=== PATIENT | male | born 1950 | race Caucasian/White ===

== ENCOUNTER 2020-08-04 06:45 | Day surgery (SDC) | payer MEDICARE ==
[~2020-08-04] VITALS: Ht 182.9 cm; Wt 104.2 kg
[~2020-08-04 06:45] MED LIST: ASPI81CH PO; Amlodipine Besyl5 MG PO; Aspir 8181 MG PO; Diovan Hct 1601 EAC1; HUMIRA40 MG/0.2 INJ; HYDCHL12.5 PO; VALSARTAN-HCTZ1 EAC4 PO; VALSARTAN-HCTZ1 EAC7 PO
--- NOTE | 2020-08-04 07:08 | NUR ---
08/04/20 0708 Melonie Hopson 0702 TETRACAINE WAS PLACED IN RIGHT EYE PER DR ORDERS. 0708 PLEGIT WAS PLACED IN RIGHT EYE PER DR ORDERS.
[2020-08-04] MEDS ORDERED: COSENTYX S150 MG/1 M (07:12)
== END 2020-08-04 08:40 | disposition home or self-care (01) ==
LOC: ORSCSDS 06:45
PROVIDERS: Ophthalmology
PROC: 08RJ3JZ Replacement of Right Lens with Synthetic Substitute, Percutaneous Approach (ICD-10-PCS; principal; 2020-08-04 08:00)
DX: H25.11 Age-related nuclear cataract, right eye (principal); I10 Essential (primary) hypertension; Z79.899 Other long term (current) drug therapy
CPT/HCPCS: A9270; J2001; J2250; J3010; J3301; J7040; V2632

== ENCOUNTER 2020-10-18 14:32 | Day surgery (SDC) | payer MEDICARE ==
[~2020-10-18] VITALS: Ht 182.9 cm; Wt 100.4 kg
[~2020-10-18 14:32] MED LIST changes: +COSENTYX S150 MG/1 M
== END 2020-10-18 17:37 | disposition home or self-care (01) ==
LOC: ORSCSDS 14:32
PROVIDERS: Internal Medicine Gastroenterology
PROC: 0DBH8ZX Excision of Cecum, Via Natural or Artificial Opening Endoscopic, Diagnostic (ICD-10-PCS; principal; 2020-10-18 16:00)
PROC: 0DBN8ZX Excision of Sigmoid Colon, Via Natural or Artificial Opening Endoscopic, Diagnostic (ICD-10-PCS; principal; 2020-10-18 16:00)
PROC: 0DBM8ZX Excision of Descending Colon, Via Natural or Artificial Opening Endoscopic, Diagnostic (ICD-10-PCS; principal; 2020-10-18 16:00)
DX: R19.4 Change in bowel habit (principal); D12.0 Benign neoplasm of cecum; K52.832 Lymphocytic colitis; K57.30 Diverticulosis of large intestine without perforation or abscess without bleeding; K64.8 Other hemorrhoids; K62.5 Hemorrhage of anus and rectum
CPT/HCPCS: 88305; J7120

== ENCOUNTER 2022-10-16 02:32 | Day surgery (SDC) | payer MEDICARE, OTHER ==
[~2022-10-16] VITALS: Wt 102.9 kg
[2022-10-16 09:08] VITALS: BP 151/85
[2022-10-16 09:56] VITALS: BP 133/86
[2022-10-16 10:13] VITALS: BP 142/85
[2022-10-16 10:26] VITALS: BP 137/89
[2022-10-16 10:41] VITALS: BP 123/86
[2022-10-16] MEDS ORDERED: LOSARTAN-HCTZ1 EAC6 PO (10:54)
[2022-10-16] MEDS ORDERED: Voltaren100 GM TOP (10:54)
[2022-10-16 10:56] VITALS: BP 131/85
== END 2022-10-16 11:30 | disposition home or self-care (01) ==
LOC: ATC 02:32
DX: M45.0 Ankylosing spondylitis of multiple sites in spine (principal); M19.011 Primary osteoarthritis, right shoulder; M76.62 Achilles tendinitis, left leg; Z79.899 Other long term (current) drug therapy
CPT/HCPCS: 96375; 96413; 96415; A9270; J2920; J7050; Q5103

== ENCOUNTER 2022-10-31 01:38 | Day surgery (SDC) | payer MEDICARE, OTHER ==
[~2022-10-31 01:38] MED LIST changes: +LOSARTAN-HCTZ1 EAC6 PO; +Voltaren100 GM TOP
[2022-10-31 09:17] VITALS: BP 130/79
[2022-10-31 10:05] LABS: BASOPHILS ABSOLUTE AUTO 0.08 K/mm3 (0.00-0.23); BASOPHILS PERCENT AUTO 1 % (0-2); EOSINOPHILS ABSOLUTE AUTO 0.12 K/mm3 (0.00-0.68); EOSINOPHILS PERCENT AUTO 2 % (0-6); Hematocrit 45.6 % (37.0-53.0); Hemoglobin 15.2 g/dL (13.5-17.5); IMMATURE GRAN ABSOLUTE AUTO 0.01 K/mm3 (0.00-0.10); IMMATURE GRAN PERCENT AUTO 0 % (0-1); LYMPHOCYTES ABSOLUTE AUTO 2.03 K/mm3 (0.84-5.20); LYMPHOCYTES PERCENT AUTO 33 % (21-46); MONOCYTES ABSOLUTE AUTO 0.48 K/mm3 (0.16-1.47); MONOCYTES PERCENT AUTO 8 % (4-13); Mean Corpuscular HGB Conc 33.3 g/dL (31.5-36.5); Mean Corpuscular Volume 84 fL (80-100); Mean Platelet Volume 11.7 fL (9.1-12.4); NEUTROPHILS ABSOLUTE AUTO 3.49 K/mm3 (1.96-9.15); NEUTROPHILS PERCENT AUTO 56 % (41-73); Platelet Count 164 K/mm3 (150-400); RDW Coefficient Variation 14.6 % (11.7-14.2); RDW Standard Deviation 44.3 fL (35.1-46.3); Red Blood Cell Count 5.42 M/mm3 (4.30-5.90); White Blood Cell Count 6.21 K/mm3 (4.00-11.30)
== END 2022-10-31 12:02 | disposition home or self-care (01) ==
LOC: ATC 01:38
PROVIDERS: Internal Medicine Rheumatology
DX: M45.0 Ankylosing spondylitis of multiple sites in spine (principal); M76.62 Achilles tendinitis, left leg; R53.83 Other fatigue
CPT/HCPCS: 85025; J7050; Q5103

== ENCOUNTER 2023-01-05 03:22 | Day surgery (SDC) | payer MEDICARE, OTHER ==
[~2023-01-05] VITALS: Wt 100.7 kg
[2023-01-05] MEDS ORDERED: INFLECTRA100 MG IV (08:47)
[2023-01-05 08:51] VITALS: BP 109/77
[2023-01-05 09:50] LABS: BASOPHILS ABSOLUTE AUTO 0.08 K/mm3 (0.00-0.23); BASOPHILS PERCENT AUTO 1 % (0-2); EOSINOPHILS ABSOLUTE AUTO 0.15 K/mm3 (0.00-0.68); EOSINOPHILS PERCENT AUTO 2 % (0-6); Hematocrit 43.7 % (37.0-53.0); Hemoglobin 14.5 g/dL (13.5-17.5); IMMATURE GRAN ABSOLUTE AUTO 0.02 K/mm3 (0.00-0.10); IMMATURE GRAN PERCENT AUTO 0 % (0-1); LYMPHOCYTES ABSOLUTE AUTO 2.42 K/mm3 (0.84-5.20); LYMPHOCYTES PERCENT AUTO 26 % (21-46); MONOCYTES PERCENT AUTO 10 % (4-13); Mean Corpuscular HGB 27.9 pg (26.0-34.0); Mean Corpuscular HGB Conc 33.2 g/dL (31.5-36.5); Mean Corpuscular Volume 84 fL (80-100); Mean Platelet Volume 10.5 fL (9.1-12.4); NEUTROPHILS ABSOLUTE AUTO 5.76 K/mm3 (1.96-9.15); NEUTROPHILS PERCENT AUTO 62 % (41-73); Platelet Count 274 K/mm3 (150-400); Red Blood Cell Count 5.19 M/mm3 (4.30-5.90); White Blood Cell Count 9.33 K/mm3 (4.00-11.30)
[2023-01-05 10:11] LABS: Albumin, Blood 3.6 g/dL (3.4-5.0); Albumin/Globulin Ratio 0.9 (0.8-1.8); Bilirubin, Total 0.8 mg/dL (0.1-1.0); Bun/Creatinine Ratio 16.2 (12.0-20.0); Calcium, Blood 8.5 mg/dL (8.5-10.1); Creatinine, Blood 0.74 mg/dL (0.60-1.20); Globulin, Blood 4.1 g/dL (2.2-4.0); Potassium, Blood 3.5 mmol/L (3.5-5.5); Total Protein, Blood 7.7 g/dL (6.4-8.2)
== END 2023-01-05 11:20 | disposition home or self-care (01) ==
LOC: ATC 03:22
PROVIDERS: Internal Medicine Rheumatology
DX: M45.0 Ankylosing spondylitis of multiple sites in spine (principal); M76.62 Achilles tendinitis, left leg; M19.011 Primary osteoarthritis, right shoulder; Z79.899 Other long term (current) drug therapy
CPT/HCPCS: 80053; 85025; 96413; 96415; J7050; Q5103

== ENCOUNTER 2023-02-19 00:58 | Day surgery (SDC) | payer MEDICARE, OTHER ==
[~2023-02-19 00:58] MED LIST changes: +INFLECTRA100 MG IV
[2023-02-19 09:11] VITALS: BP 145/90
[2023-02-21 15:09] LABS: A/G RATIO 0.9 (0.7-1.7); ALBUMIN 3.4 g/dL (2.9-4.4); ALPHA-1-GLOBULIN 0.2 g/dL (0.0-0.4); ALPHA-2-GLOBULIN 0.7 g/dL (0.4-1.0); BETA GLOBULIN 1.1 g/dL (0.7-1.3); GAMMA GLOBULIN 1.9 g/dL (0.4-1.8); GLOBULIN, TOTAL 3.9 g/dL (2.2-3.9); M-SPIKE Not Observed g/dL (Not Observed); PROTEIN, TOTAL, SERUM 7.3 g/dL (6.0-8.5)
== END 2023-02-19 12:14 | disposition home or self-care (01) ==
LOC: ATC 00:58
PROVIDERS: Internal Medicine Rheumatology
DX: M45.0 Ankylosing spondylitis of multiple sites in spine (principal); D47.2 Monoclonal gammopathy; M19.011 Primary osteoarthritis, right shoulder; Z79.899 Other long term (current) drug therapy
CPT/HCPCS: 84165; 96413; 96415; J7050; Q5103

== ENCOUNTER 2023-04-02 03:12 | Day surgery (SDC) | payer MEDICARE, OTHER ==
[2023-04-02 08:22] VITALS: BP 131/87
== END 2023-04-02 10:35 | disposition home or self-care (01) ==
LOC: ATC 03:12
DX: M45.0 Ankylosing spondylitis of multiple sites in spine (principal); M76.62 Achilles tendinitis, left leg; M19.011 Primary osteoarthritis, right shoulder; Z79.899 Other long term (current) drug therapy
CPT/HCPCS: 96365; 96366; J7050; Q5103

== ENCOUNTER 2023-05-01 02:57 | Day surgery (SDC) | payer MEDICARE, OTHER ==
[2023-05-01 08:59] VITALS: BP 115/87
[2023-05-01 09:12] LABS: BASOPHILS ABSOLUTE AUTO 0.08 K/mm3 (0.00-0.23); BASOPHILS PERCENT AUTO 1 % (0-2); EOSINOPHILS ABSOLUTE AUTO 0.14 K/mm3 (0.00-0.68); EOSINOPHILS PERCENT AUTO 2 % (0-6); Hematocrit 45.1 % (37.0-53.0); Hemoglobin 14.9 g/dL (13.5-17.5); IMMATURE GRAN ABSOLUTE AUTO 0.01 K/mm3 (0.00-0.10); IMMATURE GRAN PERCENT AUTO 0 % (0-1); LYMPHOCYTES ABSOLUTE AUTO 2.78 K/mm3 (0.84-5.20); LYMPHOCYTES PERCENT AUTO 43 % (21-46); MONOCYTES ABSOLUTE AUTO 0.68 K/mm3 (0.16-1.47); MONOCYTES PERCENT AUTO 11 % (4-13); Mean Corpuscular HGB 27.7 pg (26.0-34.0); Mean Corpuscular Volume 84 fL (80-100); Mean Platelet Volume 11.5 fL (9.1-12.4); NEUTROPHILS ABSOLUTE AUTO 2.81 K/mm3 (1.96-9.15); NEUTROPHILS PERCENT AUTO 43 % (41-73); Platelet Count 256 K/mm3 (150-400); RDW Coefficient Variation 14.6 % (11.7-14.2); RDW Standard Deviation 43.1 fL (35.1-46.3); Red Blood Cell Count 5.37 M/mm3 (4.30-5.90)
[2023-05-01 13:10] LABS: Albumin, Blood 3.4 g/dL (3.4-5.0); Albumin/Globulin Ratio 0.8 (0.8-1.8); Bilirubin, Total 0.5 mg/dL (0.1-1.0); Bun/Creatinine Ratio 11.6 (12.0-20.0); Calcium, Blood 8.4 mg/dL (8.5-10.1); Creatinine, Blood 0.86 mg/dL (0.60-1.20); Globulin, Blood 4.2 g/dL (2.2-4.0); Potassium, Blood 3.7 mmol/L (3.5-5.5); Total Protein, Blood 7.6 g/dL (6.4-8.2)
== END 2023-05-01 11:17 | disposition home or self-care (01) ==
LOC: ATC 02:57
PROVIDERS: Internal Medicine Rheumatology
DX: M45.0 Ankylosing spondylitis of multiple sites in spine (principal); M19.011 Primary osteoarthritis, right shoulder; Z79.899 Other long term (current) drug therapy
CPT/HCPCS: 80053; 85025; 96413; 96415; J7050; Q5103

== ENCOUNTER 2023-05-28 00:31 | Day surgery (SDC) | payer MEDICARE, OTHER ==
[~2023-05-28] VITALS: Wt 104.2 kg
[2023-05-28 08:27] VITALS: BP 135/87
[2023-05-28 08:33] LABS: BASOPHILS ABSOLUTE AUTO 0.09 K/mm3 (0.00-0.23); BASOPHILS PERCENT AUTO 1 % (0-2); EOSINOPHILS ABSOLUTE AUTO 0.18 K/mm3 (0.00-0.68); EOSINOPHILS PERCENT AUTO 3 % (0-6); Hematocrit 43.2 % (37.0-53.0); Hemoglobin 14.4 g/dL (13.5-17.5); IMMATURE GRAN ABSOLUTE AUTO 0.01 K/mm3 (0.00-0.10); IMMATURE GRAN PERCENT AUTO 0 % (0-1); LYMPHOCYTES ABSOLUTE AUTO 2.69 K/mm3 (0.84-5.20); LYMPHOCYTES PERCENT AUTO 40 % (21-46); MONOCYTES ABSOLUTE AUTO 0.65 K/mm3 (0.16-1.47); MONOCYTES PERCENT AUTO 10 % (4-13); Mean Corpuscular HGB 28.2 pg (26.0-34.0); Mean Corpuscular HGB Conc 33.3 g/dL (31.5-36.5); Mean Corpuscular Volume 85 fL (80-100); NEUTROPHILS ABSOLUTE AUTO 3.09 K/mm3 (1.96-9.15); NEUTROPHILS PERCENT AUTO 46 % (41-73); Platelet Count 254 K/mm3 (150-400); RDW Coefficient Variation 14.1 % (11.7-14.2); RDW Standard Deviation 43.5 fL (35.1-46.3); White Blood Cell Count 6.71 K/mm3 (4.00-11.30)
[2023-05-28 08:56] LABS: Albumin, Blood 3.4 g/dL (3.4-5.0); Albumin/Globulin Ratio 0.8 (0.8-1.8); Bilirubin, Total 0.5 mg/dL (0.1-1.0); Bun/Creatinine Ratio 19.9 (12.0-20.0); Calcium, Blood 8.5 mg/dL (8.5-10.1); Creatinine, Blood 0.81 mg/dL (0.60-1.20); Globulin, Blood 4.2 g/dL (2.2-4.0); Potassium, Blood 3.6 mmol/L (3.5-5.5); Total Protein, Blood 7.6 g/dL (6.4-8.2)
--- NOTE | 2023-05-28 11:54 | NUR ---
FAXED INFUSION RECORD FOR 05/28/[address] STEIN PER REQUEST ON ORDER
== END 2023-05-28 10:57 | disposition home or self-care (01) ==
LOC: ATC 00:31
PROVIDERS: Internal Medicine Rheumatology
DX: M45.0 Ankylosing spondylitis of multiple sites in spine (principal); M19.011 Primary osteoarthritis, right shoulder; Z79.899 Other long term (current) drug therapy
CPT/HCPCS: 80053; 85025; 96413; 96415; J7050; Q5103

== ENCOUNTER 2023-07-02 01:55 | Day surgery (SDC) | payer MEDICARE, OTHER ==
[2023-07-02 09:30] VITALS: BP 124/83
== END 2023-07-02 12:11 | disposition home or self-care (01) ==
LOC: ATC 01:55
DX: M45.0 Ankylosing spondylitis of multiple sites in spine (principal); M19.011 Primary osteoarthritis, right shoulder; Z79.899 Other long term (current) drug therapy
CPT/HCPCS: 96413; 96415; J7050; Q5103

== ENCOUNTER 2023-08-01 05:19 | Day surgery (SDC) | payer MEDICARE, OTHER ==
[2023-08-01 09:15] VITALS: BP 131/80
[2023-08-01] MEDS ORDERED: Infliximab-DYYB 500 MG in NS 250 ML IV SCH (09:35)
[2023-08-01 10:06] LABS: BASOPHILS ABSOLUTE AUTO 0.08 K/mm3 (0.00-0.23); BASOPHILS PERCENT AUTO 1 % (0-2); EOSINOPHILS ABSOLUTE AUTO 0.18 K/mm3 (0.00-0.68); EOSINOPHILS PERCENT AUTO 3 % (0-6); Hematocrit 44.5 % (37.0-53.0); Hemoglobin 14.5 g/dL (13.5-17.5); IMMATURE GRAN ABSOLUTE AUTO 0.01 K/mm3 (0.00-0.10); IMMATURE GRAN PERCENT AUTO 0 % (0-1); LYMPHOCYTES ABSOLUTE AUTO 2.52 K/mm3 (0.84-5.20); LYMPHOCYTES PERCENT AUTO 38 % (21-46); MONOCYTES ABSOLUTE AUTO 0.65 K/mm3 (0.16-1.47); MONOCYTES PERCENT AUTO 10 % (4-13); Mean Corpuscular HGB 27.7 pg (26.0-34.0); Mean Corpuscular HGB Conc 32.6 g/dL (31.5-36.5); Mean Corpuscular Volume 85 fL (80-100); Mean Platelet Volume 10.4 fL (9.1-12.4); NEUTROPHILS ABSOLUTE AUTO 3.15 K/mm3 (1.96-9.15); NEUTROPHILS PERCENT AUTO 48 % (41-73); Platelet Count 244 K/mm3 (150-400); RDW Coefficient Variation 14.1 % (11.7-14.2); RDW Standard Deviation 43.5 fL (35.1-46.3); Red Blood Cell Count 5.23 M/mm3 (4.30-5.90); White Blood Cell Count 6.59 K/mm3 (4.00-11.30)
[2023-08-01 10:28] LABS: PSA, %Free 13.6 %; PSA, Free 0.404 ng/mL
[2023-08-01 10:50] LABS: Albumin, Blood 3.5 g/dL (3.4-5.0); Albumin/Globulin Ratio 0.8 (0.8-1.8); Bilirubin, Total 0.7 mg/dL (0.1-1.0); Bun/Creatinine Ratio 19.7 (12.0-20.0); Calcium, Blood 8.7 mg/dL (8.5-10.1); Creatinine, Blood 0.76 mg/dL (0.60-1.20); Globulin, Blood 4.4 g/dL (2.2-4.0); Potassium, Blood 3.4 mmol/L (3.5-5.5); Total Protein, Blood 7.9 g/dL (6.4-8.2)
== END 2023-08-01 11:56 | disposition home or self-care (01) ==
LOC: ATC 05:19
PROVIDERS: Internal Medicine Rheumatology; Urology
DX: M45.0 Ankylosing spondylitis of multiple sites in spine (principal); M19.90 Unspecified osteoarthritis, unspecified site
CPT/HCPCS: 80053; 84153; 84154; 85025; 96413; 96415; J7050; Q5103

== ENCOUNTER 2023-10-01 05:03 | Day surgery (SDC) | payer MEDICARE, OTHER ==
[2023-10-01] MEDS ORDERED: Infliximab-DYYB 500 MG in NS 250 ML IV SCH (09:15)
[2023-10-01 09:16] VITALS: BP 123/96
== END 2023-10-01 11:52 | disposition home or self-care (01) ==
LOC: ATC 05:03
DX: M45.0 Ankylosing spondylitis of multiple sites in spine (principal)
CPT/HCPCS: 96413; 96415; J7050; Q5103

== ENCOUNTER 2023-12-26 02:14 | Day surgery (SDC) | payer MEDICARE, OTHER ==
[2023-12-26] MEDS ORDERED: MethylPREDNISolone Sod Succ 40 MG VIAL IV SCH (07:10)
[2023-12-26] MEDS ORDERED: Acetaminophen 325 MG TABLET PO PRN (07:10)
[2023-12-26] MEDS ORDERED: Loratadine 10 MG Tab PO SCH (07:10)
[2023-12-26 08:16] VITALS: BP 130/89
[2023-12-26] MEDS ORDERED: Infliximab-DYYB 700 MG in NS 250 ML IV SCH (08:35)
== END 2023-12-26 10:58 | disposition home or self-care (01) ==
LOC: ATC 02:14
DX: M45.0 Ankylosing spondylitis of multiple sites in spine (principal); M19.011 Primary osteoarthritis, right shoulder
CPT/HCPCS: 96413; 96415; J7050; Q5103

== ENCOUNTER 2024-01-31 02:49 | Day surgery (SDC) | payer MEDICARE, OTHER ==
[2024-01-31 15:05] VITALS: BP 104/68
[2024-01-31] MEDS ORDERED: Infliximab-DYYB 700 MG in NS 250 ML IV SCH (15:25)
[2024-01-31 16:12] LABS: BASOPHILS ABSOLUTE AUTO 0.11 K/mm3 (0.00-0.23); BASOPHILS PERCENT AUTO 1 % (0-2); EOSINOPHILS ABSOLUTE AUTO 0.13 K/mm3 (0.00-0.68); EOSINOPHILS PERCENT AUTO 2 % (0-6); Hematocrit 42.2 % (37.0-53.0); Hemoglobin 14.2 g/dL (13.5-17.5); IMMATURE GRAN ABSOLUTE AUTO 0.02 K/mm3 (0.00-0.10); IMMATURE GRAN PERCENT AUTO 0 % (0-1); LYMPHOCYTES ABSOLUTE AUTO 2.61 K/mm3 (0.84-5.20); LYMPHOCYTES PERCENT AUTO 34 % (21-46); MONOCYTES ABSOLUTE AUTO 0.66 K/mm3 (0.16-1.47); MONOCYTES PERCENT AUTO 9 % (4-13); Mean Corpuscular HGB 28.9 pg (26.0-34.0); Mean Corpuscular HGB Conc 33.6 g/dL (31.5-36.5); Mean Corpuscular Volume 86 fL (80-100); Mean Platelet Volume 10.8 fL (9.1-12.4); NEUTROPHILS ABSOLUTE AUTO 4.21 K/mm3 (1.96-9.15); NEUTROPHILS PERCENT AUTO 54 % (41-73); Platelet Count 239 K/mm3 (150-400); RDW Coefficient Variation 13.6 % (11.7-14.2); RDW Standard Deviation 42.7 fL (35.1-46.3); Red Blood Cell Count 4.91 M/mm3 (4.30-5.90); White Blood Cell Count 7.74 K/mm3 (4.00-11.30)
[2024-01-31 16:37] LABS: Alanine Aminotransfer (ALT/SGP 33 U/L (12-78); Albumin, Blood 3.4 g/dL (3.4-5.0); Albumin/Globulin Ratio 0.8 (0.8-1.8); Alk Phos 81 U/L (50-136); Anion Gap 8 mmol/L (3-11); Aspartate Aminotrans (AST/SGOT 32 U/L (12-37); Bilirubin, Total 0.7 mg/dL (0.1-1.0); Blood Urea Nitrogen 15 mg/dL (8-24); Bun/Creatinine Ratio 17.8 (12.0-20.0); CO2, Blood 26 mmol/L (21-32); Calcium, Blood 8.5 mg/dL (8.5-10.1); Chloride, Blood 108 mmol/L (98-108); Creatinine, Blood 0.85 mg/dL (0.60-1.20); Globulin, Blood 4.3 g/dL (2.2-4.0); Glomerular Filtration Rate 92 (60-); Glucose, Blood 120 mg/dL (70-99); PSA, %Free 13.4 %; PSA, Free 0.425 ng/mL; Potassium, Blood 3.7 mmol/L (3.5-5.5); Sodium, Blood 138 mmol/L (136-145); Total Protein, Blood 7.7 g/dL (6.4-8.2)
== END 2024-01-31 18:04 | disposition home or self-care (01) ==
LOC: ATC 02:49
PROVIDERS: Internal Medicine Rheumatology
DX: M45.0 Ankylosing spondylitis of multiple sites in spine (principal); M76.62 Achilles tendinitis, left leg; M19.011 Primary osteoarthritis, right shoulder; Z79.82 Long term (current) use of aspirin; Z79.899 Other long term (current) drug therapy
CPT/HCPCS: 80053; 84153; 84154; 85025; 96413; 96415; J7050; Q5103

== ENCOUNTER 2024-04-02 00:43 | Day surgery (SDC) | payer MEDICARE, OTHER ==
[~2024-04-02] VITALS: Wt 102.3 kg
[2024-04-02 13:58] VITALS: BP 153/80
[2024-04-02] MEDS ORDERED: Infliximab-DYYB 700 MG in NS 250 ML IV SCH (14:20)
== END 2024-04-02 17:06 | disposition home or self-care (01) ==
LOC: ATC 00:43
DX: M45.0 Ankylosing spondylitis of multiple sites in spine (principal); M19.011 Primary osteoarthritis, right shoulder; Z79.82 Long term (current) use of aspirin; Z79.899 Other long term (current) drug therapy
CPT/HCPCS: 96413; 96415; J7050; Q5103

== ENCOUNTER 2024-05-07 00:39 | Day surgery (SDC) | payer MEDICARE, OTHER ==
[~2024-05-07] VITALS: Wt 103.2 kg
[2024-05-07 13:33] VITALS: BP 143/77
[2024-05-07] MEDS ORDERED: AMOXICILLI250 MG/5 M PO (13:37)
[2024-05-07] MEDS ORDERED: Infliximab-DYYB 700 MG in NS 250 ML IV SCH (13:45)
[2024-05-07 14:16] LABS: BASOPHILS ABSOLUTE AUTO 0.07 K/mm3 (0.00-0.23); BASOPHILS PERCENT AUTO 1 % (0-2); EOSINOPHILS ABSOLUTE AUTO 0.07 K/mm3 (0.00-0.68); EOSINOPHILS PERCENT AUTO 1 % (0-6); Hematocrit 43.1 % (37.0-53.0); Hemoglobin 14.4 g/dL (13.5-17.5); IMMATURE GRAN ABSOLUTE AUTO 0.01 K/mm3 (0.00-0.10); IMMATURE GRAN PERCENT AUTO 0 % (0-1); LYMPHOCYTES ABSOLUTE AUTO 2.35 K/mm3 (0.84-5.20); LYMPHOCYTES PERCENT AUTO 34 % (21-46); MONOCYTES ABSOLUTE AUTO 0.72 K/mm3 (0.16-1.47); MONOCYTES PERCENT AUTO 10 % (4-13); Mean Corpuscular HGB 28.9 pg (26.0-34.0); Mean Corpuscular HGB Conc 33.4 g/dL (31.5-36.5); Mean Corpuscular Volume 86 fL (80-100); Mean Platelet Volume 9.9 fL (9.1-12.4); NEUTROPHILS ABSOLUTE AUTO 3.77 K/mm3 (1.96-9.15); NEUTROPHILS PERCENT AUTO 54 % (41-73); Platelet Count 295 K/mm3 (150-400); RDW Coefficient Variation 13.5 % (11.7-14.2); RDW Standard Deviation 42.2 fL (35.1-46.3); Red Blood Cell Count 4.99 M/mm3 (4.30-5.90); White Blood Cell Count 6.99 K/mm3 (4.00-11.30)
[2024-05-07 14:41] LABS: Albumin, Blood 3.6 g/dL (3.4-5.0); Albumin/Globulin Ratio 0.9 (0.8-1.8); Bilirubin, Total 0.6 mg/dL (0.1-1.0); Bun/Creatinine Ratio 17.4 (12.0-20.0); Calcium, Blood 8.4 mg/dL (8.5-10.1); Creatinine, Blood 0.81 mg/dL (0.60-1.20); Globulin, Blood 4.1 g/dL (2.2-4.0); Potassium, Blood 3.7 mmol/L (3.5-5.5); Total Protein, Blood 7.7 g/dL (6.4-8.2)
== END 2024-05-07 16:23 | disposition home or self-care (01) ==
LOC: ATC 00:39
PROVIDERS: Internal Medicine Rheumatology
DX: M45.0 Ankylosing spondylitis of multiple sites in spine (principal)
CPT/HCPCS: 80053; 85025; 96413; 96415; J7050; Q5103

== ENCOUNTER 2024-06-02 02:57 | Day surgery (SDC) | payer MEDICARE, OTHER ==
[~2024-06-02] VITALS: Wt 100.0 kg
[~2024-06-02 02:57] MED LIST changes: +AMOXICILLI250 MG/5 M PO
[2024-06-02 13:32] VITALS: BP 135/87
[2024-06-02] MEDS ORDERED: Infliximab-DYYB 700 MG in NS 250 ML IV SCH (13:45)
== END 2024-06-02 16:15 | disposition home or self-care (01) ==
LOC: ATC 02:57
DX: M45.0 Ankylosing spondylitis of multiple sites in spine (principal); M19.011 Primary osteoarthritis, right shoulder; Z79.899 Other long term (current) drug therapy
CPT/HCPCS: 96413; 96415; J7050; Q5103

== ENCOUNTER 2024-06-30 03:37 | Day surgery (SDC) | payer MEDICARE, OTHER ==
[2024-06-30 15:03] VITALS: BP 144/87
[2024-06-30] MEDS ORDERED: Infliximab-DYYB 700 MG in NS 250 ML IV SCH (15:15)
== END 2024-06-30 17:39 | disposition home or self-care (01) ==
LOC: ATC 03:37
DX: M45.0 Ankylosing spondylitis of multiple sites in spine (principal); M19.011 Primary osteoarthritis, right shoulder; M76.62 Achilles tendinitis, left leg; Z79.899 Other long term (current) drug therapy
CPT/HCPCS: 96413; 96415; J7050; Q5103

== ENCOUNTER 2024-07-29 00:18 | Day surgery (SDC) | payer MEDICARE, OTHER ==
[2024-07-29 14:27] VITALS: BP 149/84
[2024-07-29] MEDS ORDERED: Infliximab-DYYB 700 MG in NS 250 ML IV SCH (14:50)
[2024-07-29 15:43] LABS: BASOPHILS ABSOLUTE AUTO 0.07 K/mm3 (0.00-0.23); BASOPHILS PERCENT AUTO 1 % (0-2); EOSINOPHILS ABSOLUTE AUTO 0.09 K/mm3 (0.00-0.68); EOSINOPHILS PERCENT AUTO 1 % (0-6); Hematocrit 44.3 % (37.0-53.0); IMMATURE GRAN ABSOLUTE AUTO 0.02 K/mm3 (0.00-0.10); IMMATURE GRAN PERCENT AUTO 0 % (0-1); LYMPHOCYTES ABSOLUTE AUTO 2.43 K/mm3 (0.84-5.20); LYMPHOCYTES PERCENT AUTO 34 % (21-46); MONOCYTES ABSOLUTE AUTO 0.71 K/mm3 (0.16-1.47); MONOCYTES PERCENT AUTO 10 % (4-13); Mean Corpuscular HGB 29.4 pg (26.0-34.0); Mean Corpuscular HGB Conc 33.9 g/dL (31.5-36.5); Mean Corpuscular Volume 87 fL (80-100); Mean Platelet Volume 10.5 fL (9.1-12.4); NEUTROPHILS ABSOLUTE AUTO 3.89 K/mm3 (1.96-9.15); NEUTROPHILS PERCENT AUTO 54 % (41-73); Platelet Count 250 K/mm3 (150-400); RDW Coefficient Variation 14.1 % (11.7-14.2); RDW Standard Deviation 45.1 fL (35.1-46.3); Red Blood Cell Count 5.11 M/mm3 (4.30-5.90); White Blood Cell Count 7.21 K/mm3 (4.00-11.30)
[2024-07-29 16:07] LABS: Albumin, Blood 3.4 g/dL (3.4-5.0); Albumin/Globulin Ratio 0.8 (0.8-1.8); Bilirubin, Total 0.6 mg/dL (0.1-1.0); Bun/Creatinine Ratio 14.5 (12.0-20.0); Calcium, Blood 9.2 mg/dL (8.5-10.1); Creatinine, Blood 0.96 mg/dL (0.60-1.20); Globulin, Blood 4.3 g/dL (2.2-4.0); Potassium, Blood 3.8 mmol/L (3.5-5.5); Total Protein, Blood 7.7 g/dL (6.4-8.2)
== END 2024-07-29 17:40 | disposition home or self-care (01) ==
LOC: ATC 00:18
PROVIDERS: Internal Medicine Rheumatology
DX: M45.0 Ankylosing spondylitis of multiple sites in spine (principal)
CPT/HCPCS: 80053; 85025; 96413; 96415; J7050; Q5103

== ENCOUNTER 2024-08-27 01:57 | Day surgery (SDC) | payer MEDICARE, OTHER ==
[~2024-08-27] VITALS: Wt 104.2 kg
[2024-08-27 15:20] VITALS: BP 144/87
[2024-08-27] MEDS ORDERED: Infliximab-DYYB 700 MG in NS 250 ML IV SCH (15:30)
== END 2024-08-27 17:56 | disposition home or self-care (01) ==
LOC: ATC 01:57
DX: M45.0 Ankylosing spondylitis of multiple sites in spine (principal); L40.50 Arthropathic psoriasis, unspecified; M19.011 Primary osteoarthritis, right shoulder; Z79.899 Other long term (current) drug therapy
CPT/HCPCS: 96413; 96415; J7050; Q5103

== ENCOUNTER 2024-10-02 02:59 | Day surgery (SDC) | payer MEDICARE, OTHER ==
[~2024-10-02] VITALS: Wt 103.2 kg
[2024-10-02 14:00] VITALS: BP 145/86
[2024-10-02] MEDS ORDERED: Infliximab-DYYB 700 MG in NS 250 ML IV SCH (14:10)
== END 2024-10-02 16:35 | disposition home or self-care (01) ==
LOC: ATC 02:59
DX: M45.7 Ankylosing spondylitis of lumbosacral region (principal); M76.62 Achilles tendinitis, left leg; M19.011 Primary osteoarthritis, right shoulder; R53.83 Other fatigue; I10 Essential (primary) hypertension; E78.5 Hyperlipidemia, unspecified; Z79.82 Long term (current) use of aspirin; Z79.899 Other long term (current) drug therapy
CPT/HCPCS: 96413; 96415; J7050; Q5103

== ENCOUNTER 2024-10-29 06:22 | Day surgery (SDC) | payer MEDICARE, OTHER ==
[2024-10-29 15:16] VITALS: BP 115/80
[2024-10-29] MEDS ORDERED: Infliximab-DYYB 700 MG in NS 250 ML IV SCH (15:35)
[2024-10-29 16:06] LABS: BASOPHILS ABSOLUTE AUTO 0.08 K/mm3 (0.00-0.23); BASOPHILS PERCENT AUTO 1 % (0-2); EOSINOPHILS ABSOLUTE AUTO 0.11 K/mm3 (0.00-0.68); EOSINOPHILS PERCENT AUTO 1 % (0-6); Hematocrit 42.6 % (37.0-53.0); Hemoglobin 14.3 g/dL (13.5-17.5); IMMATURE GRAN ABSOLUTE AUTO 0.01 K/mm3 (0.00-0.10); IMMATURE GRAN PERCENT AUTO 0 % (0-1); LYMPHOCYTES ABSOLUTE AUTO 2.29 K/mm3 (0.84-5.20); LYMPHOCYTES PERCENT AUTO 30 % (21-46); MONOCYTES ABSOLUTE AUTO 0.69 K/mm3 (0.16-1.47); MONOCYTES PERCENT AUTO 9 % (4-13); Mean Corpuscular HGB 29.2 pg (26.0-34.0); Mean Corpuscular HGB Conc 33.6 g/dL (31.5-36.5); Mean Corpuscular Volume 87 fL (80-100); Mean Platelet Volume 10.4 fL (9.1-12.4); NEUTROPHILS ABSOLUTE AUTO 4.48 K/mm3 (1.96-9.15); NEUTROPHILS PERCENT AUTO 59 % (41-73); Platelet Count 249 K/mm3 (150-400); RDW Coefficient Variation 13.8 % (11.7-14.2); RDW Standard Deviation 43.8 fL (35.1-46.3); White Blood Cell Count 7.66 K/mm3 (4.00-11.30)
[2024-10-29 16:07] LABS: Alanine Aminotransfer (ALT/SGP 39 U/L (12-78); Albumin, Blood 3.5 g/dL (3.4-5.0); Albumin/Globulin Ratio 0.8 (0.8-1.8); Alk Phos 93 U/L (50-136); Anion Gap 8 mmol/L (3-11); Aspartate Aminotrans (AST/SGOT 31 U/L (12-37); Bilirubin, Total 0.8 mg/dL (0.1-1.0); Blood Urea Nitrogen 15 mg/dL (8-24); C-REACTIVE PROTEIN, EXT RANGE <0.290 mg/dL (0.000-0.300); CO2, Blood 26 mmol/L (21-32); Calcium, Blood 8.5 mg/dL (8.5-10.1); Chloride, Blood 106 mmol/L (98-108); Creatinine, Blood 0.88 mg/dL (0.60-1.20); Globulin, Blood 4.2 g/dL (2.2-4.0); Glomerular Filtration Rate 91 (60-); Glucose, Blood 127 mg/dL (70-99); Potassium, Blood 3.6 mmol/L (3.5-5.5); Sodium, Blood 136 mmol/L (136-145); Total Protein, Blood 7.7 g/dL (6.4-8.2)
== END 2024-10-29 17:55 | disposition home or self-care (01) ==
LOC: ATC 06:22
PROVIDERS: Internal Medicine
DX: M45.7 Ankylosing spondylitis of lumbosacral region (principal); I10 Essential (primary) hypertension; E78.5 Hyperlipidemia, unspecified
CPT/HCPCS: 80053; 85025; 86140; 96413; 96415; J7050; Q5103

== ENCOUNTER 2024-12-29 01:28 | Day surgery (SDC) | payer MEDICARE, OTHER ==
[2024-12-29 14:00] VITALS: BP 132/86
[2024-12-29] MEDS ORDERED: Infliximab-DYYB 700 MG in NS 250 ML IV SCH (14:15)
--- NOTE | 2024-12-29 17:01 | NUR ---
Treatment record from pt's visit today faxed to Dr. Che's office per order.
== END 2024-12-29 16:43 | disposition home or self-care (01) ==
LOC: ATC 01:28
DX: M45.7 Ankylosing spondylitis of lumbosacral region (principal); I10 Essential (primary) hypertension; E78.5 Hyperlipidemia, unspecified; Z79.899 Other long term (current) drug therapy; Z96.653 Presence of artificial knee joint, bilateral
CPT/HCPCS: 96413; 96415; J7050; Q5103

== ENCOUNTER 2025-02-04 04:21 | Day surgery (SDC) | payer MEDICARE, OTHER ==
[~2025-02-04] VITALS: Wt 99.7 kg
[2025-02-04 14:03] VITALS: BP 138/82
[2025-02-04] MEDS ORDERED: Infliximab-DYYB 700 MG in NS 250 ML IV SCH (14:15)
[2025-02-04 14:43] LABS: BASOPHILS ABSOLUTE AUTO 0.07 K/mm3 (0.00-0.23); BASOPHILS PERCENT AUTO 1 % (0-2); EOSINOPHILS ABSOLUTE AUTO 0.08 K/mm3 (0.00-0.68); EOSINOPHILS PERCENT AUTO 1 % (0-6); Hematocrit 41.9 % (37.0-53.0); Hemoglobin 14.1 g/dL (13.5-17.5); IMMATURE GRAN ABSOLUTE AUTO 0.01 K/mm3 (0.00-0.10); IMMATURE GRAN PERCENT AUTO 0 % (0-1); LYMPHOCYTES ABSOLUTE AUTO 2.65 K/mm3 (0.84-5.20); LYMPHOCYTES PERCENT AUTO 35 % (21-46); MONOCYTES ABSOLUTE AUTO 0.73 K/mm3 (0.16-1.47); MONOCYTES PERCENT AUTO 10 % (4-13); Mean Corpuscular HGB Conc 33.7 g/dL (31.5-36.5); Mean Corpuscular Volume 86 fL (80-100); NEUTROPHILS ABSOLUTE AUTO 3.99 K/mm3 (1.96-9.15); NEUTROPHILS PERCENT AUTO 53 % (41-73); NRBC ABSOLUTE 0.00 K/mm3 (0.00-0.02); NRBC Auto 0.0 /100 WBC (0.0-0.2); Platelet Count 229 K/mm3 (150-400); RDW Coefficient Variation 13.7 % (11.7-14.2); RDW Standard Deviation 43.2 fL (35.1-46.3)
[2025-02-04 15:13] LABS: Alanine Aminotransfer (ALT/SGP 33 U/L (12-78); Albumin, Blood 3.5 g/dL (3.4-5.0); Albumin/Globulin Ratio 0.9 (0.8-1.8); Anion Gap 8 mmol/L (3-11); Aspartate Aminotrans (AST/SGOT 26 U/L (12-37); Bilirubin, Total 0.6 mg/dL (0.1-1.0); Blood Urea Nitrogen 13 mg/dL (8-24); C-REACTIVE PROTEIN, EXT RANGE <0.290 mg/dL (0.000-0.300); CO2, Blood 26 mmol/L (21-32); Calcium, Blood 8.5 mg/dL (8.5-10.1); Chloride, Blood 106 mmol/L (98-108); Creatinine, Blood 0.90 mg/dL (0.60-1.20); Globulin, Blood 4.0 g/dL (2.2-4.0); Glucose, Blood 93 mg/dL (70-99); PSA, %Free 14.1 %; PSA, Free 0.537 ng/mL; Potassium, Blood 3.7 mmol/L (3.5-5.5); Prostate Specific Antigen 3.820 ng/mL (0.000-4.000); Sodium, Blood 136 mmol/L (136-145); Total Protein, Blood 7.5 g/dL (6.4-8.2)
== END 2025-02-04 16:38 | disposition home or self-care (01) ==
LOC: ATC 04:21
PROVIDERS: Internal Medicine
DX: Z12.5 Encounter for screening for malignant neoplasm of prostate (principal); M45.7 Ankylosing spondylitis of lumbosacral region; I10 Essential (primary) hypertension; E78.5 Hyperlipidemia, unspecified; Z79.620 Long term (current) use of immunosuppressive biologic; Z79.899 Other long term (current) drug therapy
CPT/HCPCS: 80053; 84153; 84154; 85025; 86140; 96413; 96415; J7050; Q5103

== ENCOUNTER 2025-03-10 02:45 | Day surgery (SDC) | payer MEDICARE, OTHER ==
[2025-03-10] MEDS ORDERED: Infliximab-DYYB 700 MG in NS 250 ML IV SCH (14:25)
[2025-03-10 14:26] VITALS: BP 130/80
== END 2025-03-10 16:53 | disposition home or self-care (01) ==
LOC: ATC 02:45
DX: M45.7 Ankylosing spondylitis of lumbosacral region (principal); I10 Essential (primary) hypertension; E78.5 Hyperlipidemia, unspecified; Z79.899 Other long term (current) drug therapy
CPT/HCPCS: 96413; 96415; J7050; Q5103

== ENCOUNTER 2025-04-13 01:08 | Day surgery (SDC) | payer MEDICARE, OTHER ==
[2025-04-13 13:51] VITALS: BP 147/96
[2025-04-13] MEDS ORDERED: Infliximab-DYYB 700 MG in NS 250 ML IV SCH (14:05)
--- NOTE | 2025-04-13 17:37 | NUR ---
AMY COLES DID NOT OBTAIN LABS DURING TODAY'S APPT. WILL OBTAIN AT PT'S NEXT APPT
== END 2025-04-13 16:25 | disposition home or self-care (01) ==
LOC: ATC 01:08
DX: M45.7 Ankylosing spondylitis of lumbosacral region (principal); I10 Essential (primary) hypertension; E78.5 Hyperlipidemia, unspecified; M19.011 Primary osteoarthritis, right shoulder; Z79.899 Other long term (current) drug therapy
CPT/HCPCS: 96413; 96415; J7050; Q5103

== ENCOUNTER 2025-05-14 02:24 | Day surgery (SDC) | payer MEDICARE, OTHER ==
[~2025-05-14] VITALS: Wt 103.0 kg
[2025-05-14 15:14] VITALS: BP 139/81
[2025-05-14] MEDS ORDERED: Infliximab-DYYB 700 MG in NS 250 ML IV SCH (15:30)
[2025-05-14 16:03] LABS: BASOPHILS ABSOLUTE AUTO 0.08 K/mm3 (0.00-0.23); BASOPHILS PERCENT AUTO 1 % (0-2); EOSINOPHILS ABSOLUTE AUTO 0.18 K/mm3 (0.00-0.68); EOSINOPHILS PERCENT AUTO 2 % (0-6); Hematocrit 42.1 % (37.0-53.0); Hemoglobin 14.0 g/dL (13.5-17.5); IMMATURE GRAN ABSOLUTE AUTO 0.01 K/mm3 (0.00-0.10); IMMATURE GRAN PERCENT AUTO 0 % (0-1); LYMPHOCYTES ABSOLUTE AUTO 2.62 K/mm3 (0.84-5.20); LYMPHOCYTES PERCENT AUTO 34 % (21-46); MONOCYTES ABSOLUTE AUTO 0.70 K/mm3 (0.16-1.47); MONOCYTES PERCENT AUTO 9 % (4-13); Mean Corpuscular HGB Conc 33.3 g/dL (31.5-36.5); Mean Corpuscular Volume 86 fL (80-100); NEUTROPHILS ABSOLUTE AUTO 4.02 K/mm3 (1.96-9.15); NEUTROPHILS PERCENT AUTO 53 % (41-73); NRBC ABSOLUTE 0.00 K/mm3 (0.00-0.02); NRBC Auto 0.0 /100 WBC (0.0-0.2); Platelet Count 240 K/mm3 (150-400); RDW Coefficient Variation 13.8 % (11.7-14.2); RDW Standard Deviation 43.7 fL (35.1-46.3)
[2025-05-14 16:11] LABS: C-REACTIVE PROTEIN, EXT RANGE <0.290 mg/dL (0.000-0.300)
[2025-05-14 16:14] LABS: Alanine Aminotransfer (ALT/SGP 34 U/L (12-78); Albumin, Blood 3.5 g/dL (3.4-5.0); Albumin/Globulin Ratio 0.9 (0.8-1.8); Anion Gap 10 mmol/L (3-11); Aspartate Aminotrans (AST/SGOT 25 U/L (12-37); Bilirubin, Total 0.4 mg/dL (0.1-1.0); Blood Urea Nitrogen 16 mg/dL (8-24); CO2, Blood 25 mmol/L (21-32); Calcium, Blood 8.6 mg/dL (8.5-10.1); Chloride, Blood 106 mmol/L (98-108); Creatinine, Blood 0.99 mg/dL (0.60-1.20); Globulin, Blood 4.1 g/dL (2.2-4.0); Glucose, Blood 105 mg/dL (70-99); Potassium, Blood 3.6 mmol/L (3.5-5.5); Sodium, Blood 137 mmol/L (136-145); Total Protein, Blood 7.6 g/dL (6.4-8.2)
--- NOTE | 2025-05-14 18:22 | NUR ---
Lab results and infusion record from today faxed to Dr. Che's office.
== END 2025-05-14 18:03 | disposition home or self-care (01) ==
LOC: ATC 02:24
PROVIDERS: Internal Medicine
DX: M45.7 Ankylosing spondylitis of lumbosacral region (principal); M19.011 Primary osteoarthritis, right shoulder; G89.29 Other chronic pain; M25.511 Pain in right shoulder; I10 Essential (primary) hypertension; E78.5 Hyperlipidemia, unspecified; Z79.620 Long term (current) use of immunosuppressive biologic; Z79.899 Other long term (current) drug therapy; Z96.653 Presence of artificial knee joint, bilateral
CPT/HCPCS: 36591; 80053; 85025; 86140; 96413; 96415; 99211; J7050; Q5103

== ENCOUNTER 2025-06-09 09:28 | Day surgery (SDC) | payer MEDICARE, OTHER ==
[~2025-06-09] VITALS: Wt 102.1 kg
[2025-06-09 15:35] VITALS: BP 127/90
[2025-06-09] MEDS ORDERED: Infliximab-DYYB 700 MG in NS 250 ML IV SCH (15:35)
== END 2025-06-09 18:00 | disposition home or self-care (01) ==
LOC: ATC 09:28
DX: M45.7 Ankylosing spondylitis of lumbosacral region (principal); I10 Essential (primary) hypertension; E78.5 Hyperlipidemia, unspecified; M19.011 Primary osteoarthritis, right shoulder
CPT/HCPCS: 96413; 96415; J7050; Q5103